=== PATIENT | male | born 1960 | race African-American/Black ===

== ENCOUNTER → 2018-01-16 | Outpatient (CLI) | payer BC ==
--- NOTE | 2018-01-17 08:28 | Diagnostic Imaging Report ---
#[id number] - MGSCRBIL #MALE BILATERAL DIGITAL SCREENING MAMMOGRAM WITH CAD: 01/16/2018 CLINICAL: Routine screening. No prior exams were available for comparison. Current study contains 4 films. Current study was also evaluated with a Computer Aided Detection (CAD) system. There is a benign calcification in the left breast. No significant masses, calcifications, or other findings are seen in either breast. IMPRESSION: BENIGN There is no mammographic evidence of malignancy. Mammography as deemed clinically necessary is recommended. The patient will be notified by letter of the results. Deep Pepper Jr., D.O. cw/:01/16/2018 16:31:35 Radio Presenter: Rosemarie ALICIA(Renee)(M), [facility] letter sent: Normal Exam Mammogram BI-RADS: 2 Benign
== END ==
LOC: MAMMO 10:43
PROVIDERS: ATTEND Internal Medicine
DX: Z12.31 Encounter for screening mammogram for malignant neoplasm of breast (principal)
CPT/HCPCS: 77067